=== PATIENT | male | born 1970 | race Hispanic/Latino ===

== ENCOUNTER 2016-03-04 14:25 | Emergency (ER) | payer MEDICARE ==
[2016-03-04 15:23] VITALS: BP 120/80
== END 2016-03-04 16:30 | disposition left against medical advice (07) ==
LOC: ED 14:25
DX: R05 Cough (principal); R11.0 Nausea; R63.0 Anorexia; Z53.21 Procedure and treatment not carried out due to patient leaving prior to being seen by health care provider

== ENCOUNTER 2016-11-22 16:01 | Emergency (ER) | payer MEDICARE ==
[2016-11-22 16:55] LABS: Basophils % (Auto) 0.9 % (0.0-1.8); Eosinophils % (Auto) 1.3 % (0.0-4.3); Hematocrit 45.5 % (35.5-45.6); Hemoglobin 15.2 gm/dl (11.8-15.2); Mean Corpuscular HGB Conc 33 % (32-34); Mean Corpuscular Hemoglobin 34 pg (28-32); Mean Corpuscular Volume 100 fl (84-94); Platelet Count 373 K/mm3 (140-440); Red Blood Count 4.55 M/mm3 (3.65-5.03); Red Cell Distribution Width 13.6 % (13.2-15.2); White Blood Count 14.7 K/mm3 (4.5-11.0)
[2016-11-22 17:24] LABS: Alanine Aminotransferase 14 units/L (7-56); Albumin 4.6 g/dL (3.9-5); Albumin/Globulin Ratio 1.5 %; Alkaline Phosphatase 78 units/L (35-129); Anion Gap 20 mmol/L; BUN/Creatinine Ratio 18; Blood Urea Nitrogen 18 mg/dL (9-20); Calcium 9.7 mg/dL (8.4-10.2); Carbon Dioxide 26 mmol/L (22-30); Chloride 99.4 mmol/L (98-107); Glucose 86 mg/dL (75-100); Lipase 26 units/L (13-60); Potassium 4.2 mmol/L (3.6-5.0); Sodium 141 mmol/L (137-145); Total Protein 7.6 g/dL (6.3-8.2)
[2016-11-22 17:24] LABS: Bilirubin,Urine NEG (Negative); Blood,Urine NEG (Negative); Ketones,Urine TR mg/dL (Negative); Leukocyte Esterase,Urine NEG (Negative); Mucus,Urine FEW /HPF; Nitrite,Urine NEG (Negative); Protein,Urine <15 mg/dL mg/dL (Negative); WBC,Urine < 1.0 /HPF (0.0-6.0)
[2016-11-22] MEDS ORDERED: MORPHINE IV ONE (20:46)
[2016-11-22] MEDS ORDERED: NACL 0.9% 1000 ML 1,000 ML IV ONE (20:47)
--- NOTE | 2016-11-22 20:57 | Emergency Department Report ---
HPI - General Chief Complaint: Weakness Time Seen by Provider: 11/22/16 20:37 - HPI HPI: This is a 46-year-old male who presents to the emergency department with a complaint of pain to the left lower quadrant of the abdomen and down his left leg has been going on since April when he had hernia surgery. He also says he feels weak generally, with intermittent chills and sweats. The patient is convinced that "I had a blood infection in there." He has gone repeatedly to his pain management physician who is his only physician, Dr. Li, and he was told to come to the emergency department if he is not getting any better. He has previously been taking Percocet for his pain but says that is not helping. No problems with bowel or bladder, numbness or paresthesias, shortness of breath, headache, vision change or any neurological deficits. ED Past Medical Hx - Past Medical History Previous Medical History?: Yes Hx Asthma: Yes Additional medical history: Alcohol abuse. intubation , Left foot deformity - Surgical History Past Surgical History?: Yes Additional Surgical History: trach, michell in leg, hernia repair. Splenectomy. hernia repair - Social History Smoking Status: Current Every Day Smoker Substance Use Type: Prescribed - Medications Home Medications: Home Medications Medication Instructions Recorded Confirmed Last Taken Type Albuterol Sulfate [Ventolin HFA] 2 puff IH Q4H PRN #1 [id number] 05/18/13 Unknown Rx Diazepam [Valium] 10 mg PO BID PRN 05/18/13 12/18/14 Unknown History HYDROcodone/APAP 5-325 [[place] 1 each PO Q6HR PRN #7 tablet 05/18/13 12/18/14 Unknown Rx 5/325 mg] Acetaminophen/Codeine [Tylenol 1 tab PO Q6H PRN #15 tab 01/04/16 Unknown Rx /Codeine # 3 tab] Bupropion HCl [Wellbutrin XL] 300 mg PO BID 01/04/16 01/04/16 Unknown History Percocet 10/325 mg 01/04/16 Unknown History Chlorhexidine Mouthwash [Peridex] 15 ml MM BID #1 bottle 01/22/16 Unknown Rx oxyCODONE /ACETAMINOPHEN [Percocet 1 tab PO Q6HR PRN #20 tablet 01/22/16 Unknown Rx 5/325] ED Review of Systems ROS: Stated complaint: LOW BLOOD COUNTS Other details as noted in HPI Comment: All other systems reviewed and negative Constitutional: chills, weakness Eyes: denies: eye pain, eye discharge, vision change ENT: denies: ear pain, throat pain Respiratory: denies: cough, shortness of breath, wheezing Cardiovascular: denies: palpitations, edema Gastrointestinal: abdominal pain. denies: nausea, vomiting Genitourinary: denies: dysuria, discharge Musculoskeletal: denies: back pain, joint swelling, arthralgia Skin: denies: rash, lesions Neurological: weakness. denies: headache, numbness Physical Exam - Physical Exam Vital Signs: Vital Signs 11/22/16 16:22 Temperature 99 F Pulse Rate 96 H Respiratory 18 Rate Blood Pressure 115/74 O2 Sat by Pulse 96 Oximetry Physical Exam: GENERAL: The patient is well-developed well-nourished. HENT: Normocephalic. Atraumatic. Patient has moist mucous membranes. EYES: Extraocular motions are intact. Pupils equal reactive to light bilaterally. NECK: Supple. Trachea is midline. CHEST/LUNGS: Clear to auscultation. There is no respiratory distress noted. HEART/CARDIOVASCULAR: Regular. There is no tachycardia. There is no gallop rub or murmur. ABDOMEN: Abdomen is soft. There is some left lower quadrant abdominal tenderness to palpation. No guarding or rebound tenderness. No peritoneal signs. Patient has normal bowel sounds. There is no abdominal distention. SKIN: There is no rash. There is no edema. There is no diaphoresis. NEURO: The patient is awake, alert, and oriented. The patient is cooperative. The patient has no focal neurologic deficits. The patient has normal speech. Cranial nerves II through XII grossly intact. MUSCULOSKELETAL: There is no tenderness or deformity. There is no limitation range of motion. There is no evidence of acute injury. ED Course Vital Signs 11/22/16 16:22 Temperature 99 F Pulse Rate 96 H Respiratory 18 Rate Blood Pressure 115/74 O2 Sat by Pulse 96 Oximetry ED Medical Decision Making - Lab Data Result diagrams: 11/22/16 16:34 11/22/16 16:34 - EKG Data -: EKG Interpreted by Ia EKG shows normal: sinus rhythm, axis, intervals (prolonged ND interval indicating first-degree AV block), QRS complexes, ST-T waves Rate: normal - EKG Data When compared to previous EKG there are: previous EKG unavailable Interpretation: other (prolonged ND interval indicating first-degree AV block) - Radiology Data Radiology results: report reviewed, image reviewed interpreted by me: Chest x-ray shows some hyperinflation of the lungs and flattening of the diaphragms consistent with some emphysema. No obvious pneumonia. No pleural effusions. PROCEDURE: CT ABDOMEN PELVIS WO CON TECHNIQUE: Computerized axial tomography of the abdomen and pelvis was performed without intravenous contrast. This study is performed without intravascular contrast material and its sensitivity for abdominal and pelvic pathology, including neoplasms, inflammation, abscess, free fluid, thrombosis, arterial dissection and infarction, is reduced compared with a contrast enhanced study. HISTORY: LLQ abd and pelvic pain COMPARISON: 07/30/2012 FINDINGS: Visualized lower thorax: No significant abnormality. Liver: Normal size and attenuation. Spleen: Normal size and attenuation. Gallbladder and biliary system: There are gallstones. There is no cholecystitis or biliary ductal dilatation.. Pancreas: Normal. Adrenals: Normal. Kidneys: There are no kidney stones. There is no hydronephrosis.. GI tract: There is no bowel obstruction, colitis or enteritis. The appendix is normal.. Lymph nodes and mesentery: Normal. Vasculature: Normal. Bladder: Normal. Reproductive organs: There is no ascites, free air, abscess or adenopathy.. 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 There is a screw transfixing the left sacroiliac joint.. Musculoskeletal structures: No significant abnormality. Other: None. IMPRESSION: There are gallstones. There is no cholecystitis or biliary ductal dilatation.. There are no kidney stones. There is no hydronephrosis.. There is no bowel obstruction, colitis or enteritis. The appendix is normal.. There is no ascites, free air, abscess or adenopathy.. - Medical Decision Making 46-year-old male presents to the emergency department with the main complaint of pain to the left lower quadrant the abdomen with some radiation down his leg. He feels like he has some intra-abdominal infection or problem with a previous hernia repair. I can feel the area of the hernia but it does not appear to be sticking out at this time, or likely to be incarcerated/ strangulated. His labs have been unremarkable. CT of the abdomen and pelvis with IV contrast showed some cholelithiasis without cholecystitis. No signs of any bowel infection, intra-abdominal abscess or infection or any problem with any hernia. He complained of a transient chest pain so an EKG was done that did not show any ST elevation MT, ischemia or dysrhythmia. There is a first- degree AV block but there is no bradycardia. His discomfort may have been secondary to the coincidental finding of the cholelithiasis. Vital signs stable to that his ED course including being afebrile. He was given a dose pain medication here and outpatient gets treated by a pain physician. He appears safe for discharge home at this time. His symptoms have been going on since April and upon reevaluation he is feeling improved. He has been encouraged to return to the ER with any worsening of symptoms or any acute distress. - Differential Diagnosis diverticulitis, bowel section, hernia, cholelithiasis Critical Care Time: No Critical care attestation.: If time is entered above; I have spent that time in minutes in the direct care of this critically ill patient, excluding procedure time. ED Disposition Clinical Impression: Abdominal pain Qualifiers: Abdominal location: left lower quadrant Qualified Code(s): R10.32 - Left lower quadrant pain Cholelithiasis Qualifiers: Cholelithiasis location: gallbladder Cholecystitis presence: without cholecystitis Biliary obstruction: without biliary obstruction Qualified Code(s) : K80.20 - Calculus of gallbladder without cholecystitis without obstruction Disposition: DC-01 TO HOME OR SELFCARE Is pt being admited?: No Condition: Stable Instructions: Biliary Colic (ED), Abdominal Pain (ED) Additional Instructions: Please follow-up with your primary care physician in the next few days. Return to the emergency Department with any worsening of your symptoms or any acute distress. Referrals: JANNIE LI MD [Primary Care Provider] - [facility] Time of Disposition: 01:58
[2016-11-22] MEDS ORDERED: NACL ONE (21:04)
--- NOTE | 2016-11-23 01:50 | Cat Scan Report ---
FINAL REPORT PROCEDURE: CT ABDOMEN PELVIS WO CON TECHNIQUE: Computerized axial tomography of the abdomen and pelvis was performed without intravenous contrast. This study is performed without intravascular contrast material and its sensitivity for abdominal and pelvic pathology, including neoplasms, inflammation, abscess, free fluid, thrombosis, arterial dissection and infarction, is reduced compared with a contrast enhanced study. HISTORY: LLQ abd and pelvic pain COMPARISON: 07/30/2012 FINDINGS: Visualized lower thorax: No significant abnormality. Liver: Normal size and attenuation. Spleen: Normal size and attenuation. Gallbladder and biliary system: There are gallstones. There is no cholecystitis or biliary ductal dilatation.. Pancreas: Normal. Adrenals: Normal. Kidneys: There are no kidney stones. There is no hydronephrosis.. GI tract: There is no bowel obstruction, colitis or enteritis. The appendix is normal.. Lymph nodes and mesentery: Normal. Vasculature: Normal. Bladder: Normal. Reproductive organs: There is no ascites, free air, abscess or adenopathy.. 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 There is a screw transfixing the left sacroiliac joint.. Musculoskeletal structures: No significant abnormality. Other: None. IMPRESSION: There are gallstones. There is no cholecystitis or biliary ductal dilatation.. There are no kidney stones. There is no hydronephrosis.. There is no bowel obstruction, colitis or enteritis. The appendix is normal.. There is no ascites, free air, abscess or adenopathy.. .
[2016-11-23 06:02] VITALS: BP 104/60
--- NOTE | 2016-11-23 09:36 | XRay Report ---
Single view chest: Compared to 03/11/15. History: Chest pain. Findings: Normal cardiomediastinal silhouette. Trachea is midline. No consolidation, pneumothorax or pleural effusion. Impression: No acute cardiopulmonary findings.
== END 2016-11-23 02:10 | disposition home or self-care (01) ==
LOC: ED 16:01
DX: K80.20 Calculus of gallbladder without cholecystitis without obstruction (principal); J45.909 Unspecified asthma, uncomplicated; F17.200 Nicotine dependence, unspecified, uncomplicated
CPT/HCPCS: 36415; 71010; 74176; 80053; 81001; 83690; 84443; 84484; 85025; 93005; 93010; 96361; 96374; 99284; J2270; J7030

== ENCOUNTER 2017-02-02 11:08 | Emergency (ER) | payer MEDICARE ==
[2017-02-02 12:04] LABS: Urine Drugs of Abuse Note Disclamer
[2017-02-02 12:04] LABS: Basophils % (Auto) 0.3 % (0.0-1.8); Eosinophils % (Auto) 1.2 % (0.0-4.3); Hematocrit 45.4 % (35.5-45.6); Hemoglobin 15.2 gm/dl (11.8-15.2); Mean Corpuscular HGB Conc 34 % (32-34); Mean Corpuscular Hemoglobin 33 pg (28-32); Mean Corpuscular Volume 99 fl (84-94); Platelet Count 300 K/mm3 (140-440); Red Blood Count 4.57 M/mm3 (3.65-5.03); Red Cell Distribution Width 14.4 % (13.2-15.2)
[2017-02-02 12:17] LABS: Anion Gap 17 mmol/L; BUN/Creatinine Ratio 14; Blood Urea Nitrogen 10 mg/dL (9-20); Calcium 9.4 mg/dL (8.4-10.2); Carbon Dioxide 26 mmol/L (22-30); Chloride 101.9 mmol/L (98-107); Glucose 95 mg/dL (75-100); Potassium 4.8 mmol/L (3.6-5.0); Sodium 140 mmol/L (137-145)
[2017-02-02 12:19] LABS: Creatine Kinase MB 2.9 ng/mL (0.0-4.0)
[2017-02-02 12:20] LABS: Creatine Kinase 111 units/L (55-170)
[2017-02-02 12:28] LABS: Bilirubin,Urine NEG (Negative); Blood,Urine MOD (Negative); Ketones,Urine NEG (Negative); Leukocyte Esterase,Urine NEG (Negative); Nitrite,Urine NEG (Negative); Protein,Urine <15 mg/dL mg/dL (Negative); Urobilinogen,Urine < 2.0 mg/dL (<2.0); WBC,Urine < 1.0 /HPF (0.0-6.0)
[2017-02-02] MEDS ORDERED: TYLENOL PO ONE (13:19)
--- NOTE | 2017-02-02 13:19 | Emergency Department Report ---
ED General Adult HPI - General Chief complaint: Anxiety Stated complaint: ANXIETY Time Seen by Provider: 02/02/17 13:08 Source: patient, RN notes reviewed, old records reviewed Mode of arrival: Ambulatory Limitations: No Limitations - History of Present Illness Initial comments: This is a 46-year-old male who was previously unknown to this provider. Patient reports a past medical history of anxiety, depression. Patient presents to the ER with anxiety, requests medication to help with anxiety, left- sided chest wall pain, left lower quadrant pain, and left lower extremity pain. His symptoms do not have exacerbating or relieving factors that did not radiate anywhere; anxiety has been present since 2011, chest pain has been present for a few hours, it does not radiate to the back, arms and neck, there is no vomiting, diaphoresis, shortness of breath, no DVT or pulmonary embolus risk factors. Patient has been having left lower quadrant pain for months and years. Had a negative noncontrast CT scan of the abdomen pelvis at this hospital in November. Left lower extremity pain and neuropathic discomfort have also been present for months and years. -: Gradual Location: back, left, lower extremity Consistency: intermittent Improves with: none Worsens with: none Associated Symptoms: chest pain - Related Data Home Medications Medication Instructions Recorded Confirmed Last Taken Diazepam [Valium] 10 mg PO BID PRN 05/18/13 12/18/14 Unknown Bupropion HCl [Wellbutrin XL] 300 mg PO BID 01/04/16 01/04/16 Unknown Percocet 10/325 mg 01/04/16 Unknown Previous Rx's Medication Instructions Recorded Last Taken Type Albuterol Sulfate [Ventolin HFA] 2 puff IH Q4H PRN #1 hfa.aer.ad 05/18/13 Unknown Rx HYDROcodone/APAP 5-325 [[place] 1 each PO Q6HR PRN #7 tablet 05/18/13 Unknown Rx 5/325 mg] Acetaminophen/Codeine [Tylenol 1 tab PO Q6H PRN #15 tab 01/04/16 Unknown Rx /Codeine # 3 tab] Chlorhexidine Mouthwash [Peridex] 15 ml MM BID #1 bottle 01/22/16 Unknown Rx oxyCODONE /ACETAMINOPHEN [Percocet 1 tab PO Q6HR PRN #20 tablet 01/22/16 Unknown Rx 5/325] Acetaminophen [Tylenol Arthritis] 650 mg PO Q6HR PRN #30 tablet.er 02/02/17 Unknown Rx Allergies Allergy/AdvReac Type Severity Reaction Status Date / Time cyclobenzaprine HCl Allergy Shortness Verified 03/04/16 15:24 [From Flexeril] of Breath diphenhydramine HCl Allergy Shortness Verified 03/04/16 15:24 [From Benadryl] of Breath ibuprofen [From Motrin] Allergy Shortness Verified 03/04/16 15:24 of Breath tramadol Allergy Hives Verified 03/04/16 15:24 alprazolam [From Xanax] AdvReac Itching Verified 03/04/16 15:24 iodine AdvReac Shortness Verified 11/22/16 21:00 of Breath ED Review of Systems ROS: Stated complaint: ANXIETY Other details as noted in HPI Constitutional: denies: fever Eyes: denies: vision change ENT: denies: epistaxis Respiratory: denies: cough Cardiovascular: chest pain Gastrointestinal: denies: vomiting Genitourinary: denies: testicular pain Musculoskeletal: arthralgia Skin: denies: lesions Neurological: denies: confusion Psychiatric: anxiety. denies: homicidal thoughts, suicidal thoughts ED Past Medical Hx - Past Medical History Hx Psychiatric Treatment: Yes (Anxiety, Depression) Hx Asthma: Yes Additional medical history: Alcohol abuse. intubation , Left foot deformity - Surgical History Additional Surgical History: trach, michell in leg, hernia repair. Splenectomy. hernia repair - Social History Smoking Status: Current Every Day Smoker Substance Use Type: None - Medications Home Medications: Home Medications Medication Instructions Recorded Confirmed Last Taken Type Albuterol Sulfate [Ventolin HFA] 2 puff IH Q4H PRN #1 hfa.aer.ad 05/18/13 Unknown Rx Diazepam [Valium] 10 mg PO BID PRN 05/18/13 12/18/14 Unknown History HYDROcodone/APAP 5-325 [[facility] 1 each PO Q6HR PRN #7 tablet 05/18/13 12/18/14 Unknown Rx 5/325 mg] Acetaminophen/Codeine [Tylenol 1 tab PO Q6H PRN #15 tab 01/04/16 Unknown Rx /Codeine # 3 tab] Bupropion HCl [Wellbutrin XL] 300 mg PO BID 01/04/16 01/04/16 Unknown History Percocet 10/325 mg 01/04/16 Unknown History Chlorhexidine Mouthwash [Peridex] 15 ml MM BID #1 bottle 01/22/16 Unknown Rx oxyCODONE /ACETAMINOPHEN [Percocet 1 tab PO Q6HR PRN #20 tablet 01/22/16 Unknown Rx 5/325] Acetaminophen [Tylenol Arthritis] 650 mg PO Q6HR PRN #30 tablet.er 02/02/17 Unknown Rx ED Physical Exam - General Limitations: No Limitations General appearance: alert, anxious - Head Head exam: Present: atraumatic, normocephalic - Eye Eye exam: Present: normal appearance - ENT ENT exam: Present: normal exam, normal orophraynx, mucous membranes moist, normal external ear exam - Neck Neck exam: Present: normal inspection, full ROM - Respiratory Respiratory exam: Present: normal lung sounds bilaterally. Absent: respiratory distress - Cardiovascular Cardiovascular Exam: Present: regular rate, normal rhythm, normal heart sounds. Absent: systolic murmur, diastolic murmur, rubs, gallop - GI/Abdominal GI/Abdominal exam: Present: soft, normal bowel sounds. Absent: distended, tenderness, guarding, rebound, rigid, pulsatile mass - Rectal Rectal exam: Present: deferred - Extremities Exam Extremities exam: Present: normal inspection, normal capillary refill (there is no palpable cord. There is a negative Homans sign. The compartments are soft.) , other (2+ pulses noted in the bilateral upper/lower extremities.). Absent: calf tenderness - Back Exam Back exam: Present: normal inspection, full ROM. Absent: paraspinal tenderness , vertebral tenderness - Neurological Exam Neurological exam: Present: alert, oriented X3, CN II-XII intact, other. Absent : normal gait (the patient walks with a slight limp), motor sensory deficit - Psychiatric Psychiatric exam: Present: anxious. Absent: homicidal ideation, suicidal ideation - Skin Skin exam: Present: warm, dry, intact, normal color. Absent: rash ED Course Vital Signs 02/02/17 11:24 Temperature 98.1 F Pulse Rate 74 Respiratory 20 Rate Blood Pressure 117/79 O2 Sat by Pulse 99 Oximetry ED Medical Decision Making - Lab Data Result diagrams: 02/02/17 11:46 02/02/17 11:46 Vital Signs 02/02/17 11:24 Temperature 98.1 F Pulse Rate 74 Respiratory 20 Rate Blood Pressure 117/79 O2 Sat by Pulse 99 Oximetry Lab Results 02/02/17 02/02/17 02/02/17 Range/Units 11:38 11:38 11:46 WBC (4.5-11.0) K/mm3 RBC (3.65-5.03) M/mm3 Hgb (11.8-15.2) gm/dl Hct (35.5-45.6) % MCV (84-94) fl MCH (28-32) pg MCHC (32-34) % RDW (13.2-15.2) % Plt Count (140-440) K/mm3 Lymph % (Auto) (13.4-35.0) % [place] % (Auto) (0.0-7.3) % Eos % (Auto) (0.0-4.3) % Baso % (Auto) (0.0-1.8) % Lymph # (1.2-5.4) K/mm3 [place] # (0.0-0.8) K/mm3 Eos # (0.0-0.4) K/mm3 Baso # (0.0-0.1) K/mm3 Seg Neutrophils % (40.0-70.0) % Seg Neutrophils # (1.8-7.7) K/mm3 Sodium 140 (137-145) mmol/L Potassium 4.8 (3.6-5.0) mmol/L Chloride 101.9 (98-107) mmol/L Carbon Dioxide 26 (22-30) mmol/L Anion Gap 17 mmol/L BUN 10 (9-20) mg/dL Creatinine 0.7 L (0.8-1.5) mg/dL Estimated GFR > 60 ml/min BUN/Creatinine Ratio 14 % Glucose 95 (75-100) mg/dL Calcium 9.4 (8.4-10.2) mg/dL Total Creatine Kinase (55-170) units/L CK-MB (CK-2) (0.0-4.0) ng/mL CK-MB (CK-2) Rel Index (0-4) Troponin T (0.00-0.029) ng/mL Urine Color Yellow (Yellow) Urine Turbidity Clear (Clear) Urine pH 6.0 (5.0-7.0) Ur Specific [place] 1.009 (1.003-1.030) Urine Protein <15 mg/dl (Negative) mg/dL Urine Glucose (UA) Neg (Negative) mg/dL Urine Ketones Neg (Negative) mg/dL Urine Blood Mod (Negative) Urine Nitrite Neg (Negative) Urine Bilirubin Neg (Negative) Urine Urobilinogen < 2.0 (<2.0) mg/dL Ur Leukocyte Esterase Neg (Negative) Urine WBC (Auto) < 1.0 (0.0-6.0) /HPF Urine RBC (Auto) 6.0 (0.0-6.0) /HPF Urine Opiates Screen Presumptive negative Urine Methadone Screen Presumptive negative Ur Barbiturates Screen Presumptive negative Ur Phencyclidine Scrn Presumptive negative Ur Amphetamines Screen Presumptive negative U Benzodiazepines Scrn Presumptive negative Urine Cocaine Screen Presumptive negative U Marijuana (THC) Screen Presumptive negative Drugs of Abuse Note Disclamer Plasma/Serum Alcohol (0-0.07) gm% 02/02/17 02/02/17 02/02/17 Range/Units 11:46 11:46 11:46 WBC 13.0 H (4.5-11.0) K/mm3 RBC 4.57 (3.65-5.03) M/mm3 Hgb 15.2 (11.8-15.2) gm/dl Hct 45.4 (35.5-45.6) % MCV 99 H (84-94) fl MCH 33 H (28-32) pg MCHC 34 (32-34) % RDW 14.4 (13.2-15.2) % Plt Count 300 (140-440) K/mm3 Lymph % (Auto) 22.3 (13.4-35.0) % [place] % (Auto) 7.9 H (0.0-7.3) % Eos % (Auto) 1.2 (0.0-4.3) % Baso % (Auto) 0.3 (0.0-1.8) % Lymph # 2.9 (1.2-5.4) K/mm3 [place] # 1.0 H (0.0-0.8) K/mm3 Eos # 0.2 (0.0-0.4) K/mm3 Baso # 0.0 (0.0-0.1) K/mm3 Seg Neutrophils % 68.3 (40.0-70.0) % Seg Neutrophils # 8.9 H (1.8-7.7) K/mm3 Sodium (137-145) mmol/L Potassium (3.6-5.0) mmol/L Chloride (98-107) mmol/L Carbon Dioxide (22-30) mmol/L Anion Gap mmol/L BUN (9-20) mg/dL Creatinine (0.8-1.5) mg/dL Estimated GFR ml/min BUN/Creatinine Ratio % Glucose (75-100) mg/dL Calcium (8.4-10.2) mg/dL Total Creatine Kinase 111 (55-170) units/L CK-MB (CK-2) 2.9 (0.0-4.0) ng/mL CK-MB (CK-2) Rel Index 2.6 (0-4) Troponin T < 0.010 (0.00-0.029) ng/mL Urine Color (Yellow) Urine Turbidity (Clear) Urine pH (5.0-7.0) Ur Specific [place] (1.003-1.030) Urine Protein (Negative) mg/dL Urine Glucose (UA) (Negative) mg/dL Urine Ketones (Negative) mg/dL Urine Blood (Negative) Urine Nitrite (Negative) Urine Bilirubin (Negative) Urine Urobilinogen (<2.0) mg/dL Ur Leukocyte Esterase (Negative) Urine WBC (Auto) (0.0-6.0) /HPF Urine RBC (Auto) (0.0-6.0) /HPF Urine Opiates Screen Urine Methadone Screen Ur Barbiturates Screen Ur Phencyclidine Scrn Ur Amphetamines Screen U Benzodiazepines Scrn Urine Cocaine Screen U Marijuana (THC) Screen Drugs of Abuse Note Plasma/Serum Alcohol < 0.01 (0-0.07) gm% 12/16/17 Range/Units 13:21 WBC (4.5-11.0) K/mm3 RBC (3.65-5.03) M/mm3 Hgb (11.8-15.2) gm/dl Hct (35.5-45.6) % MCV (84-94) fl MCH (28-32) pg MCHC (32-34) % RDW (13.2-15.2) % Plt Count (140-440) K/mm3 Lymph % (Auto) (13.4-35.0) % [place] % (Auto) (0.0-7.3) % Eos % (Auto) (0.0-4.3) % Baso % (Auto) (0.0-1.8) % Lymph # (1.2-5.4) K/mm3 [place] # (0.0-0.8) K/mm3 Eos # (0.0-0.4) K/mm3 Baso # (0.0-0.1) K/mm3 Seg Neutrophils % (40.0-70.0) % Seg Neutrophils # (1.8-7.7) K/mm3 Sodium (137-145) mmol/L Potassium (3.6-5.0) mmol/L Chloride (98-107) mmol/L Carbon Dioxide (22-30) mmol/L Anion Gap mmol/L BUN (9-20) mg/dL Creatinine (0.8-1.5) mg/dL Estimated GFR ml/min BUN/Creatinine Ratio % Glucose (75-100) mg/dL Calcium (8.4-10.2) mg/dL Total Creatine Kinase (55-170) units/L CK-MB (CK-2) (0.0-4.0) ng/mL CK-MB (CK-2) Rel Index (0-4) Troponin T < 0.010 (0.00-0.029) ng/mL Urine Color (Yellow) Urine Turbidity (Clear) Urine pH (5.0-7.0) Ur Specific [place] (1.003-1.030) Urine Protein (Negative) mg/dL Urine Glucose (UA) (Negative) mg/dL Urine Ketones (Negative) mg/dL Urine Blood (Negative) Urine Nitrite (Negative) Urine Bilirubin (Negative) Urine Urobilinogen (<2.0) mg/dL Ur Leukocyte Esterase (Negative) Urine WBC (Auto) (0.0-6.0) /HPF Urine RBC (Auto) (0.0-6.0) /HPF Urine Opiates Screen Urine Methadone Screen Ur Barbiturates Screen Ur Phencyclidine Scrn Ur Amphetamines Screen U Benzodiazepines Scrn Urine Cocaine Screen U Marijuana (THC) Screen Drugs of Abuse Note Plasma/Serum Alcohol (0-0.07) gm% - EKG Data -: EKG Interpreted by Me - EKG Data 02/02/17 14:32 EKG #1 demonstrates normal sinus, 70 bpm, normal axis, normal intervals, motion artifact, not morphologically consistent with ST elevation myocardial infarction , appears grossly unchanged from prior EKG from November 2016, with the exception of resolved prolonged VA interval. Repeat EKG is essentially unchanged. - Radiology Data Radiology results: report reviewed, image reviewed interpreted by me: Two-view x-ray of the chest, interpreted by me: No acute disease Referring Physician: PATRIA SANCHEZ Patient Name: MIGUEL GARCIA Date of : 1961-09-13 Sex: Female Report Date: 2017-02-02 Report Status: Finalized Findings [facility] [address] [place] [address] XRay Report Signed Patient: MIGUEL GARCIA MR#: [id number] : 09/13/1961 Acct:[id number] Age/Sex: 55 / F ADM Date: 02/02/17 Loc: ED Attending Dr: Ordering Physician: PATRIA SANCHEZ MD Date of Service: 02/02/17 Procedure(s): XR chest 1V ap Accession Number(s): [id number] cc: PATRIA SANCHEZ MD Fluoro Time In Minutes: AP CHEST :02/02/17 09:23:00 CLINICAL: Dyspnea. COMPARISON:08/28/16 FINDINGS: Cardiomegaly and central vascular congestion with redistribution of pulmonary blood flow to the upper lobes. Right basal airspace disease or atelectasis. Left basal opacification with silhouetting of the left hemidiaphragm. Mild blunting of the right costophrenic angle is unchanged compared to the prior exam. The tubes or lines. IMPRESSION: CHF with mild perihilar interstitial pulmonary edema. Bibasal dependent pulmonary edema versus atelectasis or airspace disease. Transcribed By: REF Dictated By: MADHURI STEVENS MD Electronically Authenticated By: MADHURI STEVENS MD Signed Date/Time: 02/02/17 1219 - Medical Decision Making Differential diagnosis, including without limited to: Anxiety, conversion disorder, acute coronary syndrome, costochondritis, pneumonia Assessment and plan: 46-year-old male, has numerous complaints, including left- sided chest wall discomfort, anxiety, chronic pain in his left lower quadrant, and chronic lower extremity neuropathic pain. Symptoms have been going on intermittently. Patient alert and oriented 3 at this time, clinically sober, does not require 1013, walks with a steady gait, low risk by heart score, low risk by JOHN score, no pulmonary embolus or DVT risk factors, low risk by well' s criteria, perc negative I instructed the patient that I would not prescribe any sort of benzodiazepine that he would need to follow up with a primary care doctor or psychiatrist for this. Objectively speaking, troponin negative 2, x-ray of the chest negative, EKG unremarkable 2 and unchanged from prior, patient observed in the ER for a few hours without clinical decompensation, he is suitable for outpatient management and evaluation, and is at low risk for major adverse cardiac event Patient has been having this left lower quadrant discomfort for weeks and months , and had a negative noncontrast CT scan of the abdomen and pelvis a few weeks ago. Critical care attestation.: If time is entered above; I have spent that time in minutes in the direct care of this critically ill patient, excluding procedure time. ED Disposition Clinical Impression: Chest discomfort Disposition: DC-01 TO HOME OR SELFCARE Is pt being admited?: No Does the pt Need Aspirin: No Condition: Stable Instructions: Anxiety (ED) Additional Instructions: Take the pain medication as directed. Follow up with a primary care doctor or psychiatrist within the next 2 weeks. Follow up with any of illicit cardiology groups within the next 3-5 days. Return to the ER right away with new pain, worsened pain, migration of pain, fevers, chills, lethargy, irritability, projectile vomiting, change in mental status, confusion, inability to tolerate liquid feeds. Referrals: CASPER RODARTE MD [Primary Care Provider] - 3-5 Days [facility] [Provider Group] - 3-5 Days [facility] [Provider Group] - 3-5 Days
[2017-02-02 14:41] VITALS: BP 122/78
--- NOTE | 2017-02-03 09:26 | XRay Report ---
CHEST TWO VIEWS: 02/02/17 11:08:00 CLINICAL: Chest pain. COMPARISON: 11/22/16 FINDINGS: Normal heart and pulmonary vasculature. The lungs are hyperexpanded and hyperlucent as on the last exam.Several old left rib fractures. No acute fracture. IMPRESSION: COPD and no change.
== END 2017-02-02 14:42 | disposition home or self-care (01) ==
LOC: ED 11:08
DX: R07.89 Other chest pain (principal); J45.909 Unspecified asthma, uncomplicated; F17.200 Nicotine dependence, unspecified, uncomplicated
CPT/HCPCS: 36415; 71020; 80048; 80307; 81001; 82550; 82553; 84484; 85025; 93005; 93010; 99284; G0480; 80320

== ENCOUNTER 2017-10-28 12:41 | Emergency (ER) | payer MEDICARE ==
[2017-10-28] MEDS ORDERED: HALDOL IM PRN (12:50)
[2017-10-28] MEDS ORDERED: ATIVAN IM PRN (12:50)
--- NOTE | 2017-10-28 12:51 | Emergency Department Report ---
ED General Adult HPI - General Chief complaint: Overdose Stated complaint: POSS OVERDOSE Time Seen by Provider: 10/28/17 12:49 Source: patient, EMS (verbal report received from EMS.ems notes not available at time of chart dictation), RN notes reviewed, old records reviewed Mode of arrival: Stretcher Limitations: Altered Mental Status - History of Present Illness Initial comments: This is a 47-year-old gentleman whom I have evaluated in the past. His past history includes anxiety, depression, benzodiazepine dependence. Patient is brought to the hospital by EMS for altered mental status and possible overdose. The patient's last known well time is not known. As per EMS report, patient was found on a local public transportation train and appeared to be intoxicated. Fingerstick appropriate and within normal limits. Upon arrival to the ER, the patient was sleepy but arousable. He would not tell this provider what if anything he took. History is limited as patient is sleepy and a poor historian, and appears to be intoxicated. No witnesses are available for collateral information at this time. -: unknown Radiation: other Quality: other Consistency: other Improves with: other Worsens with: other Associated Symptoms: confusion, other - Related Data Home Medications Medication Instructions Recorded Confirmed Last Taken Diazepam [Valium] 10 mg PO BID PRN 05/18/13 12/18/14 Unknown Bupropion HCl [Wellbutrin XL] 300 mg PO BID 01/04/16 01/04/16 Unknown Percocet 10/325 mg 01/04/16 Unknown Previous Rx's Medication Instructions Recorded Last Taken Type Albuterol Sulfate [Ventolin HFA] 2 puff IH Q4H PRN #1 hfa.aer.ad 05/18/13 Unknown Rx HYDROcodone/APAP 5-325 [[facility] 1 each PO Q6HR PRN #7 tablet 05/18/13 Unknown Rx 5/325 mg] Acetaminophen/Codeine [Tylenol 1 tab PO Q6H PRN #15 tab 01/04/16 Unknown Rx /Codeine # 3 tab] Chlorhexidine Mouthwash [Peridex] 15 ml MM BID #1 bottle 01/22/16 Unknown Rx oxyCODONE /ACETAMINOPHEN [Percocet 1 tab PO Q6HR PRN #20 tablet 01/22/16 Unknown Rx 5/325] Acetaminophen [Tylenol Arthritis] 650 mg PO Q6HR PRN #30 tablet.er 02/02/17 Unknown Rx Allergies Allergy/AdvReac Type Severity Reaction Status Date / Time cyclobenzaprine HCl Allergy Shortness Verified 03/04/16 15:24 [From Flexeril] of Breath diphenhydramine HCl Allergy Shortness Verified 03/04/16 15:24 [From Benadryl] of Breath ibuprofen [From Motrin] Allergy Shortness Verified 03/04/16 15:24 of Breath tramadol Allergy Hives Verified 03/04/16 15:24 alprazolam [From Xanax] AdvReac Itching Verified 03/04/16 15:24 iodine AdvReac Shortness Verified 11/22/16 21:00 of Breath ED Review of Systems ROS: Stated complaint: POSS OVERDOSE Other details as noted in HPI Comment: Unobtainable due to pts medical conditions ED Past Medical Hx - Past Medical History Hx Psychiatric Treatment: Yes (Anxiety, Depression) Hx Asthma: Yes Additional medical history: Alcohol abuse. intubation , Left foot deformity - Surgical History Additional Surgical History: trach, michell in leg, hernia repair. Splenectomy. hernia repair - Social History Smoking Status: Current Every Day Smoker Substance Use Type: None - Medications Home Medications: Home Medications Medication Instructions Recorded Confirmed Last Taken Type Albuterol Sulfate [Ventolin HFA] 2 puff IH Q4H PRN #1 hfa.aer.ad 05/18/13 Unknown Rx Diazepam [Valium] 10 mg PO BID PRN 05/18/13 12/18/14 Unknown History HYDROcodone/APAP 5-325 [[facility] 1 each PO Q6HR PRN #7 tablet 05/18/13 12/18/14 Unknown Rx 5/325 mg] Acetaminophen/Codeine [Tylenol 1 tab PO Q6H PRN #15 tab 01/04/16 Unknown Rx /Codeine # 3 tab] Bupropion HCl [Wellbutrin XL] 300 mg PO BID 01/04/16 01/04/16 Unknown History Percocet 10/325 mg 01/04/16 Unknown History Chlorhexidine Mouthwash [Peridex] 15 ml MM BID #1 bottle 01/22/16 Unknown Rx oxyCODONE /ACETAMINOPHEN [Percocet 1 tab PO Q6HR PRN #20 tablet 01/22/16 Unknown Rx 5/325] Acetaminophen [Tylenol Arthritis] 650 mg PO Q6HR PRN #30 tablet.er 02/02/17 Unknown Rx ED Physical Exam - General Limitations: Altered Mental Status, Physical Limitation General appearance: lethargic - Head Head exam: Present: atraumatic, normocephalic - Eye Eye exam: Present: normal appearance, PERRL - ENT ENT exam: Present: normal exam, normal orophraynx, normal external ear exam - Neck Neck exam: Present: normal inspection, full ROM. Absent: tenderness, meningismus - Respiratory Respiratory exam: Absent: respiratory distress, wheezes, rales, rhonchi, stridor - Cardiovascular Cardiovascular Exam: Present: regular rate, normal rhythm, normal heart sounds. Absent: bradycardia, tachycardia, irregular rhythm, systolic murmur, diastolic murmur, rubs, gallop - GI/Abdominal GI/Abdominal exam: Present: soft. Absent: distended, tenderness, guarding, rebound, rigid, pulsatile mass - Rectal Rectal exam: Present: normal inspection, other (chaperoned by nurse Kishore) - exam: Present: normal inspection, other (chaperoned by nurse Kishore) External exam: Present: normal external exam - Extremities Exam Extremities exam: Present: normal inspection, other (2+ pulses noted in the bilateral upper, lower extremities. Compartments soft. No long bony tenderness. The pelvis is stable.). Absent: tenderness, pedal edema, joint swelling, calf tenderness - Back Exam Back exam: Absent: tenderness, CVA tenderness (R), paraspinal tenderness - Neurological Exam Neurological exam: Present: altered (patient is altered. He occasionally moves 4 extremities. He is yelling at staff.) - Psychiatric Psychiatric exam: Present: agitated - Skin Skin exam: Present: warm, dry, intact, normal color. Absent: rash ED Course Vital Signs 10/28/17 10/28/17 12:51 15:27 Temperature 98.1 F Pulse Rate 96 H 91 H Respiratory 18 18 Rate Blood Pressure 101/66 Blood Pressure 110/68 [Left] O2 Sat by Pulse 98 97 Oximetry - Reevaluation(s) Reevaluation #1: 10/28/17 13:14 Differential diagnosis, including but not limited to: Intracranial injury, cervical spine injury, overdose, dehydration, myositis, electrolyte derangement Assessment and plan: 47-year-old male with a probable toxic encephalopathy, most likely secondary to overdose. Intent is unknown. Last known well time is not known. Overall clinical picture not consistent with ischemic stroke but rather toxic encephalopathy. Given that patient's intent is unknown, and given that he does not appear to exhibit a rational decision making capacity or ability to care for himself he is placed on a 1013. CT scan of the brain, cervical spine pending. Screening laboratory studies pending. EKG reviewed, appears essentially unremarkable and essentially unchanged from prior. He will be placed on a color television console monitor and pulse oximeter and observed. Reevaluation #2: 10/28/17 18:34 CT scan of the brain, cervical spine negative for acute disease. Patient has been observed in the ER for hours without clinical decompensation. He is sleeping comfortably. He is medically stable for psychiatric consultation and evaluation at this time. There does not appear to be any emergent medical condition that would preclude psychiatric admission, hospitalization and/or consultation at this time. ED Medical Decision Making - Lab Data Result diagrams: 10/28/17 13:26 10/28/17 13:26 - EKG Data -: EKG Interpreted by Me EKG shows normal: sinus rhythm - EKG Data 10/28/17 13:15 Sinus, 92 bpm, normal axis, QTC prolonged, borderline AR interval, abnormal EKG , a STEMI, appears essentially unchanged from prior from August 2017. - Radiology Data Radiology results: pending Critical care attestation.: If time is entered above; I have spent that time in minutes in the direct care of this critically ill patient, excluding procedure time. ED Disposition Clinical Impression: Alcohol intoxication, Medical clearance for psychiatric admission Disposition: DC/TX-65 PSY HOSP/PSY UNIT Is pt being admited?: No Does the pt Need Aspirin: No Condition: Good Referrals: PRIMARY CARE, [Primary Care Provider] - 3-5 Days
[2017-10-28 13:54] LABS: Hematocrit 42.9 % (35.5-45.6); Hemoglobin 15.1 gm/dl (11.8-15.2); Mean Corpuscular HGB Conc 35 % (32-34); Mean Corpuscular Hemoglobin 34 pg (28-32); Mean Corpuscular Volume 96 fl (84-94); Platelet Count 271 K/mm3 (140-440); Red Blood Count 4.47 M/mm3 (3.65-5.03); Red Cell Distribution Width 14.5 % (13.2-15.2)
[2017-10-28 14:04] LABS: INR 1.05 (0.87-1.13)
[2017-10-28 14:25] LABS: BUN/Creatinine Ratio 18; Blood Urea Nitrogen 9 mg/dL (9-20); Calcium 8.3 mg/dL (8.4-10.2); Hemolysis Index 16
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
--- NOTE | 2017-10-28 18:31 | Cat Scan Report ---
FINAL REPORT EXAM: CT CERVICAL SPINE WO CON HISTORY: ams found down in tox TECHNIQUE: Standard CT cervical spine obtained at 2.5 mm axial increments. Coronal and sagittal reconstruction was also performed. PRIORS: CT C-spine 01/22/2016 FINDINGS: C7 is only included on the axial imaging. It is off the field of view for sagittal and coronal images. The vertebral bodies are intact. There is no evidence for acute fracture. There is no evidence for paravertebral soft tissue swelling. Alignment is maintained. Moderate degenerative disc space narrowing at C5-C6 is stable. Mucosal thickening in the left sphenoid, maxillary, and ethmoid sinuses is seen. IMPRESSION: No acute abnormality of the cervical spine. Stable exam with degenerative disc changes at C5-C6.
[2017-10-28 20:36] LABS: Bilirubin,Urine NEG (Negative); Blood,Urine NEG (Negative); Color,Urine Yellow (Yellow); Hyaline Casts,Urine 1 /LPF; Mucus,Urine FEW /HPF; Protein,Urine <15 mg/dL mg/dL (Negative)
[2017-10-28 20:52] LABS: Amphetamine Screen,Urine PRESUMPTIVE NEGATIVE; Cannabinoid Screen,Urine PRESUMPTIVE NEGATIVE; Cocaine Screen,Urine PRESUMPTIVE NEGATIVE; Methadone Screen,Urine PRESUMPTIVE NEGATIVE; Opiate Screen,Urine PRESUMPTIVE NEGATIVE
[2017-10-28 21:28] LABS: Benzodiazepines Screen,Urine PRESUMPTIVE POSITIVE
--- NOTE | 2017-10-29 14:11 | Consultation ---
History of Present Illness - Reason for Consult Consult date: 10/29/17 Reason for consult: Mental Health Evaluation Requesting physician: PATRIA SANCHEZ - Chief Complaint Chief complaint: "I am okay" - History of Present Psychiatric Illness 47-year-old white male presenting to ER for AMS, being intoxication, and possible overdose. Per the record the patient has a hx of anxiety, depression, and benzodiazepine dependence. Today the patient is calm, but vague during the assessment. He wouldn't answer all the questions when asked. He stated that he takes Xanax when needed that's prescribed by his psychiatrist. He would not confirm or deny having depression when asked. He stated that this is the only time being intoxicated in his adult life. Per the record, the patient have been to the ER for ETOH in the past. He could not elaborate what happened to him prior to his arrival to the hospital. He denies overdosing on any substance. He denies SI/HI's and AVH's. He denies recreational drug use. Medications and Allergies Allergies Allergy/AdvReac Type Severity Reaction Status Date / Time cyclobenzaprine HCl Allergy Shortness Verified 03/04/16 15:24 [From Flexeril] of Breath diphenhydramine HCl Allergy Shortness Verified 03/04/16 15:24 [From Benadryl] of Breath ibuprofen [From Motrin] Allergy Shortness Verified 03/04/16 15:24 of Breath tramadol Allergy Hives Verified 03/04/16 15:24 alprazolam [From Xanax] AdvReac Itching Verified 03/04/16 15:24 iodine AdvReac Shortness Verified 11/22/16 21:00 of Breath Home Medications Medication Instructions Recorded Confirmed Last Taken Type Albuterol Sulfate [Ventolin HFA] 2 puff IH Q4H PRN #1 hfa.aer.ad 05/18/13 Unknown Rx Diazepam [Valium] 10 mg PO BID PRN 05/18/13 12/18/14 Unknown History HYDROcodone/APAP 5-325 [[place] 1 each PO Q6HR PRN #7 tablet 05/18/13 12/18/14 Unknown Rx 5/325 mg] Acetaminophen/Codeine [Tylenol 1 tab PO Q6H PRN #15 tab 01/04/16 Unknown Rx /Codeine # 3 tab] Bupropion HCl [Wellbutrin XL] 300 mg PO BID 01/04/16 01/04/16 Unknown History Percocet 10/325 mg 01/04/16 Unknown History Chlorhexidine Mouthwash [Peridex] 15 ml MM BID #1 bottle 01/22/16 Unknown Rx oxyCODONE /ACETAMINOPHEN [Percocet 1 tab PO Q6HR PRN #20 tablet 01/22/16 Unknown Rx 5/325] Acetaminophen [Tylenol Arthritis] 650 mg PO Q6HR PRN #30 tablet.er 02/02/17 Unknown Rx Active Meds: Active Medications Haloperidol Lactate (Haldol) 5 mg IM Q6HR PRN PRN Reason: Agitation Lorazepam (Ativan) 2 mg IM Q4HR PRN PRN Reason: Agitation Mental Status Exam - Vital signs Last Vital Signs Temp 98.1 F 10/29/17 10:00 Pulse 105 H 10/29/17 10:00 Resp 18 10/29/17 10:00 BP 127/74 10/29/17 10:00 Pulse Ox 94 10/29/17 10:00 - Exam Narrative exam: MSE: Appearance: calm Behavior: regular eye contact Speech: regular rate and tone Mood: "okay" Affect: flat Thought Process: circumstantial Thought Content: denies SI/HI's and AVH's Motor Activity: lying in bed Cognition: A/O x3 Insight: variable Judgment: variable Results Result Diagrams: 10/28/17 13:26 10/28/17 13:26 Abnormal lab results 10/28/17 10/28/17 10/28/17 Range/Units 13:08 13:08 13:08 Carbon Dioxide (22-30) mmol/L Creatinine (0.8-1.5) mg/dL Calcium (8.4-10.2) mg/dL Salicylates < 0.3 L (2.8-20.0) mg/dL Acetaminophen < 5.0 L (10.0-30.0) ug/mL Plasma/Serum Alcohol 0.14 H (0-0.07) % 10/28/17 Range/Units 13:26 Carbon Dioxide 21 L (22-30) mmol/L Creatinine 0.5 L (0.8-1.5) mg/dL Calcium 8.3 L (8.4-10.2) mg/dL Salicylates (2.8-20.0) mg/dL Acetaminophen (10.0-30.0) ug/mL Plasma/Serum Alcohol (0-0.07) % All other labs normal. Assessment and Plan Assessment and plan: Impression: Alcohol Use DO. Alcohol Intoxicated on admission to the ER. Unspecified Anxiety DO. Today the patient is calm, but vague during the assessment. The patient is positive for benzos. No acute withdrawals noted (etoh /benzos). DDx: R/O Mood DO Recommendation/Plan: Continue 1013 and gather collateral to R/O possible overdose. Recommend CIWA. Discussed the importance to abstain from alcohol consumption (etoh).
[2017-10-29] MEDS ORDERED: ATIVAN IV PRN ×2 (14:28→14:41)
[2017-10-29 14:50] VITALS: BP 111/77
[2017-10-29] MEDS: ATIVAN IV PRN ×2 (15:21→19:00)
== END 2017-10-29 19:25 ==
LOC: ED 12:41 → EEVIPCON 12:41 → ED 10-29 19:25
DX: F10.129 Alcohol abuse with intoxication, unspecified (principal); F41.9 Anxiety disorder, unspecified; F32.9 Major depressive disorder, single episode, unspecified; J45.909 Unspecified asthma, uncomplicated; F17.200 Nicotine dependence, unspecified, uncomplicated; Z88.8 Allergy status to other drugs, medicaments and biological substances; Z88.6 Allergy status to analgesic agent
CPT/HCPCS: 36415; 70450; 72125; 80048; 80307; 81001; 82550; 83735; 85027; 85610; 93005; 93010; 96374; 96376; 99285; G0480; J1630; J2060; 80320

== ENCOUNTER 2018-11-22 18:07 | Emergency (ER) | payer MEDICARE ==
[2018-11-22 19:33] VITALS: BP 119/74
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
--- NOTE | 2018-11-22 20:26 | XRay Report ---
LEFT KNEE, 3 VIEWS. INDICATION / CLINICAL INFORMATION: WOUND WITH REDNESS AND SWELLING. COMPARISON: None available. FINDINGS: Hardware is present in the distal femur. IM michell is noted. 2 screws are present in the patella Visual ized hardware is intact. The bones are demineralized. There is soft tissue swelling with soft tissue defect along the anterior aspect of the knee consisten t with history of wound. Multiple osteochondral loose bodies are seen surrounding the knee. I do not see radiographic evidence for osteomyelitis at this time. IMPRESSION: Prior ORIF of the femur and patella for prior fractures. There is prepatellar soft tissue swelling consistent with history provided of wound.. No radiographic evidence of osteomyelitis at th is time. Signer Name: Yomaira Murphy MD Signed: 11/22/2018 8:21 PM Workstation Name: [id number]
[2018-11-22] MEDS ORDERED: ACETAMINOPHEN 500 MG TAB PO ONE (21:28)
[2018-11-22] MEDS ORDERED: ONDANSETRON 4 MG ODT TAB PO ONE (21:28)
[2018-11-22] MEDS ORDERED: SULFAMETHOXAZOLE/TRIMETHOPRIM 800/160MG DS TAB PO ONE (21:28)
[2018-11-22] MEDS ORDERED: BACITRACIN/POLYMYXIN B OINT 28.35 GM TP ONE (21:28)
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
== END 2018-11-22 23:00 | disposition home or self-care (01) ==
LOC: ED 18:07
DX: S83.92XA Sprain of unspecified site of left knee, initial encounter (principal); S80.212A Abrasion, left knee, initial encounter; L08.9 Local infection of the skin and subcutaneous tissue, unspecified; L03.116 Cellulitis of left lower limb; F41.9 Anxiety disorder, unspecified; F32.9 Major depressive disorder, single episode, unspecified; J45.909 Unspecified asthma, uncomplicated; F17.200 Nicotine dependence, unspecified, uncomplicated; Z88.6 Allergy status to analgesic agent; Z88.8 Allergy status to other drugs, medicaments and biological substances; X58.XXXA Exposure to other specified factors, initial encounter; Y93.89 Activity, other specified; Y92.89 Other specified places as the place of occurrence of the external cause; Y99.8 Other external cause status
CPT/HCPCS: Q0162

== ENCOUNTER 2019-01-04 11:57 | Emergency (ER) | payer MEDICARE ==
[2019-01-04 12:23] VITALS: BP 102/65
[2019-01-04 14:12] LABS: Hematocrit 44.1 % (35.5-45.6); Hemoglobin 14.8 gm/dl (11.8-15.2); Mean Corpuscular HGB Conc 34 % (32-34); Mean Corpuscular Volume 100 fl (84-94); Platelet Count 312 K/mm3 (140-440); Red Blood Count 4.42 M/mm3 (3.65-5.03); Red Cell Distribution Width 14.2 % (13.2-15.2)
[2019-01-04 14:25] LABS: BUN/Creatinine Ratio 24; Blood Urea Nitrogen 19 mg/dL (9-20); Calcium 8.8 mg/dL (8.4-10.2); Hemolysis Index 17
--- NOTE | 2019-01-04 14:44 | XRay Report ---
XR spine lumbosacral 2-3V INDICATION / CLINICAL INFORMATION: back pain. COMPARISON: None available. FINDINGS: BONES/JOINT(S): No vertebral fracture. Mild degenerative disc disease at L5-S1 with moderate disc hei ght loss and endplate osteophyte formation. Grade 1 degenerative anterolisthesis of L5 on S1. No angy tional significant disc height loss. Fixation screw in the left S1 vertebral segment. SOFT TISSUES: No significant abnormality. ADDITIONAL FINDINGS: None. Signer Name: Spike Hudson MD Signed: 01/04/2019 2:40 PM Workstation Name: [email or web address]
--- NOTE | 2019-01-04 14:45 | XRay Report ---
XR knee 3V LT INDICATION / CLINICAL INFORMATION: knee pain. COMPARISON: None available. FINDINGS: BONES/JOINT(S): No acute fracture or subluxation. Previous internal fixation in the distal femur with intramedullary michell. Previous repair of a patellar fracture with 2 screws and cerclage wires. Chronic appearing patellar fragment about 2 cm superior to the superior pole of the patella. No significant joint effusion. SOFT TISSUES: No significant abnormality. ADDITIONAL FINDINGS: None. Signer Name: Spike Hudson MD Signed: 01/04/2019 2:41 PM Workstation Name: [email or web address]
[2019-01-04 14:47] LABS: Total Cells Counted 100
[2019-01-04 14:48] LABS: Burr Cells 1+; Large Platelets Few; Platelet Estimate Consistent w Auto; Poikilocytosis 1+
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
[2019-01-04] MEDS ORDERED: traMADol 50 MG TAB PO ONE (15:13)
== END 2019-01-04 15:34 | disposition home or self-care (01) ==
LOC: ED 11:57
DX: S81.032A Puncture wound without foreign body, left knee, initial encounter (principal); L03.115 Cellulitis of right lower limb; M54.5 Low back pain; J45.909 Unspecified asthma, uncomplicated; F41.9 Anxiety disorder, unspecified; F32.9 Major depressive disorder, single episode, unspecified; Z90.81 Acquired absence of spleen; Z87.891 Personal history of nicotine dependence; Z79.899 Other long term (current) drug therapy; Z91.041 Radiographic dye allergy status; Z88.5 Allergy status to narcotic agent; Y08.89XA Assault by other specified means, initial encounter; Y93.89 Activity, other specified; Y92.89 Other specified places as the place of occurrence of the external cause; Y99.8 Other external cause status
CPT/HCPCS: 36415; 72100; 80048; 85007; 85025; 99283

== ENCOUNTER 2019-02-07 16:34 | Emergency (ER) | payer MEDICARE ==
--- NOTE | 2019-02-07 17:19 | Event Note ---
ED Screening Note Date of service: 02/07/19 Time: 17:18 ED Screening Note: 48 y o male presents to Ed cc of left shoulder anterior pain and burning worsening with movement This initial assessment/diagnostic orders/clinical plan/treatment(s) is/are subject to change based on patients health status, clinical progression and re- assessment by fellow clinical providers in the ED. Further treatment and workup at subsequent clinical providers discretion. Patient/guardian urged not to elope from the ED as their condition may be serious if not clinically assessed and managed. Initial orders include: xr shoulder acc eval
--- NOTE | 2019-02-07 18:05 | XRay Report ---
LEFT SHOULDER 3 VIEWS INDICATION / CLINICAL INFORMATION: LT SHOULDER PAIN COMPARISON: None available. FINDINGS: BONES / JOINT(S): No acute fracture or subluxation. No significant arthritis. SOFT TISSUES: No significant abnormality. ADDITIONAL FINDINGS: Old left rib fractures. Signer Name: Carlos Camargo MD Signed: 02/07/2019 6:01 PM Workstation Name: [id number]
--- NOTE | 2019-02-07 21:13 | Emergency Department Report ---
Chief Complaint: Shoulder Injury Stated Complaint: SHOULDER PAIN Time Seen by Provider: 02/07/19 21:08 - HPI History of Present Illness: 48-year-old male presents to the emergency room for chronic left shoulder pain. Patient denies any recent injuries. Patient reports that she needs a refill on his Cando that was given to him on 01/28/2019. Patient states that his provider at [facility] gave him the prescription that he needs another one. I informed patient that we do not manage chronic pain and that we would need to refer him to pain management. Patient therefore request to have a prescription for tramadol. I then instructed patient that we do not treat chronic pain with narcotics that he would need to go to a pain management provider or his primary care provider. Patient reports Eden the warehouse logistics coordinator is supposed to help him get into her facility. Patient states I have to wait 30 days before and see another pain management provider. I informed patient that he can take [id number] Tylenol as he has an allergy to ibuprofen and cyclobenzaprine. - Exam Vital Signs: Vital Signs 02/07/19 16:37 Temperature 97.5 F L Pulse Rate 97 H Respiratory 18 Rate Blood Pressure 120/71 O2 Sat by Pulse 96 Oximetry MSE screening note: Focused history and physical exam performed. Due to findings the following was ordered: 48-year-old male presents to the emergency room for chronic left shoulder pain. Patient denies any recent injuries. Patient reports that she needs a refill on his Cando that was given to him on 01/28/2019. Patient states that his provider at [facility] gave him the prescription that he needs another one. I informed patient that we do not manage chronic pain and that we would need to refer him to pain management. Patient therefore request to have a prescription for tramadol. I then instructed patient that we do not treat chronic pain with narcotics that he would need to go to a pain management provider or his primary care provider. Patient reports Eden the warehouse logistics coordinator is supposed to help him get into her facility. Patient states I have to wait 30 days before and see another pain management provider. I informed patient that he can take [id number] Tylenol as he has an allergy to ibuprofen and cyclobenzaprine. Patient is referred to pain management provider. Recommend patient to take Tylenol for pain management. ED Medical Decision Making - Radiology Data interpreted by me: 01/28/2019 2 01/28/2019 HYDROCODONE-ACETAMIN 5-325 MG 20.0 5 NA SHE [id number] [facility] ([id number]) 0 20.0 [place] 01/08/2019 2 01/08/2019 TRAMADOL HCL 50 MG TABLET 30.0 8 NA SHE [id number] [facility] ([id number]) 0 18.75 [place] 01/04/2019 2 01/04/2019 TRAMADOL HCL 50 MG TABLET 10.0 2 RY SHE [id number] [facility] ([id number]) 0 25.0 [place] 11/23/2018 2 11/22/2018 TRAMADOL HCL 50 MG TABLET 12.0 3 DA OSE [id number] [facility] ([id number]) 0 20.0 [place] 09/12/2018 1 09/11/2018 ACETAMINOPHEN-COD #3 TABLET 12.0 3 GR [facility] [id number] [facility] ([id number]) 0 18.0 [place] *Pharmacy is created using a combination of pharmacy name and the last four digits of the pharmacy license number. ED Disposition for MSE Clinical Impression: Chronic left shoulder pain Disposition: DC-01 TO HOME OR SELFCARE Is pt being admited?: No Does the pt Need Aspirin: No Condition: Stable Additional Instructions: Take Tylenol for pain management. Follow up with the pain management provider I have listed several below for your convenience. Referrals: PRIMARY CARE, [Primary Care Provider] - 3-5 Days [facility] [Provider Group] - 3-5 Days [facility], [facility] [Provider Group] - 3-5 Days [facility] [Provider Group] - 3-5 Days
[2019-02-07 22:11] VITALS: BP 110/65
== END 2019-02-07 21:30 | disposition home or self-care (01) ==
LOC: ED 16:34
DX: M25.512 Pain in left shoulder (principal); Z88.8 Allergy status to other drugs, medicaments and biological substances

== ENCOUNTER 2019-02-20 12:44 | Emergency (ER) | payer MEDICARE ==
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
[2019-02-20] MEDS ORDERED: guaiFENesin/CODEINE 100-10MG ORAL LIQD 5 ML PO ONE (17:00)
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
[2019-02-20 17:37] VITALS: BP 113/67
== END 2019-02-20 17:36 | disposition home or self-care (01) ==
LOC: ED 12:44
DX: J06.9 Acute upper respiratory infection, unspecified (principal); F32.9 Major depressive disorder, single episode, unspecified; F41.9 Anxiety disorder, unspecified; J45.909 Unspecified asthma, uncomplicated; F17.200 Nicotine dependence, unspecified, uncomplicated; F12.10 Cannabis abuse, uncomplicated
CPT/HCPCS: 71046; 99283

== ENCOUNTER 2019-02-23 12:56 | Observation (INO) | payer MEDICARE ==
[2019-02-23] MEDS ORDERED: IPRATROPIUM 0.02% NEBU 2.5 ML IH ONE ×3 (13:05→18:34)
[2019-02-23] MEDS ORDERED: dexAMETHasone 20 MG/5 ML VIAL IM ONE (13:05)
[2019-02-23] MEDS ORDERED: ALBUTEROL 2.5 MG/3 ML NEBU IH ONE ×3 (13:05→18:34)
--- NOTE | 2019-02-23 13:07 | Emergency Department Report ---
Blank Doc - Documentation Documentation: 48-year-old male that presents with SOB. WAs here 3 days ago and chest x-ray within normal limits. Exam: Some tightness in breath sounds. Will order breathing treatment and steroids. This initial assessment/diagnostic orders/clinical plan/treatment(s) is/are subject to change based on patient's health status, clinical progression and re- assessment by fellow clinical providers in the ED. Further treatment and workup at subsequent clinical providers discretion. Patient/guardians urged not to elope from the ED as their condition may be serious if not clinically assessed and managed. Initial orders include: 1- Patient sent to ACC for further evaluation and treatment 2- breathing treatment/steroids
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
[2019-02-23] MEDS ORDERED: dexAMETHasone 20 MG/5 ML VIAL IV ONE (14:22)
--- NOTE | 2019-02-23 14:26 | Emergency Department Report ---
ED Shortness of Breath HPI - General Chief Complaint: Dyspnea/Respdistress Stated Complaint: SOB Time Seen by Provider: 02/23/19 13:03 Source: patient Mode of arrival: Ambulatory Limitations: No Limitations - History of Present Illness Initial Comments: Patient is 48 years old male with no significant past medical history except for traumatic pneumothorax few years ago and heavy smoking. Patient patient presented to the ER complaining of shortness of breath, difficulty breathing and wheezing. Patient was seen here 3 days ago and treated for upper respiratory symptoms but is stated that his symptoms did not improve. Patient denied any chest pain, fever or chills. Patient also denied any nausea or vomiting. Patient found to have a oxygen saturation of 87% on room air in triage. MD Complaint: shortness of breath, cough -: week(s) Improves With: nothing Context: recent URI Treatments Prior to Arrival: none - Related Data Home Medications Medication Instructions Recorded Confirmed Last Taken Diazepam [Valium] 10 mg PO BID PRN 05/18/13 12/18/14 Unknown Bupropion HCl [Wellbutrin XL] 300 mg PO BID 01/04/16 01/04/16 Unknown Percocet 10/325 mg 01/04/16 Unknown Previous Rx's Medication Instructions Recorded Last Taken Type Albuterol Sulfate [Ventolin HFA] 2 puff IH Q4H PRN #1 hfa.aer.ad 05/18/13 Unknown Rx HYDROcodone/APAP 5-325 [Brick 1 each PO Q6HR PRN #7 tablet 05/18/13 Unknown Rx 5/325 mg] Chlorhexidine Mouthwash [Peridex] 15 ml MM BID #1 bottle 01/22/16 Unknown Rx oxyCODONE /ACETAMINOPHEN [Percocet 1 tab PO Q6HR PRN #20 tablet 01/22/16 Unknown Rx 5/325] Acetaminophen [Tylenol Arthritis] 650 mg PO Q6HR PRN #30 tablet.er 02/02/17 Unknown Rx Acetaminophen/Codeine [Tylenol 1 tab PO Q6H PRN #12 tab 11/22/18 Unknown Rx /Codeine # 3 tab] Mupirocin [Bactroban 2% OINT] 1 applic TP Q8H #1 tube 11/22/18 Unknown Rx Sulfamethoxazole/Trimethoprim 1 each PO Q12H #20 tablet 11/22/18 Unknown Rx [Bactrim DS TAB] Sulfamethoxazole/Trimethoprim 1 each PO BID #14 tablet 01/04/19 Unknown Rx [Bactrim DS TAB] traMADoL [Ultram 50 MG tab] 50 mg PO Q6HR PRN #10 tablet 01/04/19 Unknown Rx Allergies Allergy/AdvReac Type Severity Reaction Status Date / Time cyclobenzaprine HCl Allergy Shortness Verified 03/04/16 15:24 [From Flexeril] of Breath ibuprofen [From Motrin] Allergy Shortness Verified 03/04/16 15:24 of Breath iodine AdvReac Shortness Verified 11/22/16 21:00 of Breath ED Review of Systems ROS: Stated complaint: SOB Other details as noted in HPI Comment: All other systems reviewed and negative Constitutional: denies: chills, fever Respiratory: cough, shortness of breath, SOB with exertion, SOB at rest, wheez ing Cardiovascular: denies: chest pain, palpitations, dyspnea on exertion Gastrointestinal: denies: abdominal pain, nausea, vomiting Neurological: denies: headache, weakness ED Past Medical Hx - Past Medical History Previous Medical History?: Yes Hx Psychiatric Treatment: Yes (Anxiety, Depression) Hx Asthma: Yes Additional medical history: Alcohol abuse. intubation , Left foot deformity, Left knee pain and surgery - Surgical History Past Surgical History?: Yes Additional Surgical History: trach, michell in leg, hernia repair. Splenectomy. hernia repair, Left knee surgery - Social History Smoking Status: Never Smoker Substance Use Type: None - Medications Home Medications: Home Medications Medication Instructions Recorded Confirmed Last Taken Type Albuterol Sulfate [Ventolin HFA] 2 puff IH Q4H PRN #1 hfa.aer.ad 05/18/13 12/18/14 Unknown Rx Diazepam [Valium] 10 mg PO BID PRN 05/18/13 12/18/14 Unknown History HYDROcodone/APAP 5-325 [Brick 1 each PO Q6HR PRN #7 tablet 05/18/13 12/18/14 Unknown Rx 5/325 mg] Bupropion HCl [Wellbutrin XL] 300 mg PO BID 01/04/16 01/04/16 Unknown History Percocet 10/325 mg 01/04/16 Unknown History Chlorhexidine Mouthwash [Peridex] 15 ml MM BID #1 bottle 01/22/16 Unknown Rx oxyCODONE /ACETAMINOPHEN [Percocet 1 tab PO Q6HR PRN #20 tablet 01/22/16 Unknown Rx 5/325] Acetaminophen [Tylenol Arthritis] 650 mg PO Q6HR PRN #30 tablet.er 02/02/17 Unknown Rx Acetaminophen/Codeine [Tylenol 1 tab PO Q6H PRN #12 tab 11/22/18 Unknown Rx /Codeine # 3 tab] Mupirocin [Bactroban 2% OINT] 1 applic TP Q8H #1 tube 11/22/18 Unknown Rx Sulfamethoxazole/Trimethoprim 1 each PO Q12H #20 tablet 11/22/18 Unknown Rx [Bactrim DS TAB] Sulfamethoxazole/Trimethoprim 1 each PO BID #14 tablet 01/04/19 Unknown Rx [Bactrim DS TAB] traMADoL [Ultram 50 MG tab] 50 mg PO Q6HR PRN #10 tablet 01/04/19 Unknown Rx ED Physical Exam - General Limitations: No Limitations General appearance: in distress (moderate respiratory distress) - Head Head exam: Present: atraumatic, normocephalic, normal inspection - Eye Eye exam: Present: normal appearance - ENT ENT exam: Present: normal exam, normal orophraynx, mucous membranes moist - Neck Neck exam: Present: normal inspection, full ROM. Absent: tenderness, meningismus, lymphadenopathy, thyromegaly - Respiratory Respiratory exam: Present: respiratory distress, wheezes, rales, rhonchi, access ory muscle use, decreased breath sounds, prolonged expiratory. Absent: stridor - Cardiovascular Cardiovascular Exam: Present: tachycardia - GI/Abdominal GI/Abdominal exam: Present: soft, normal bowel sounds. Absent: distended, tenderness, guarding, rebound, rigid, organomegaly, mass, bruit, pulsatile mass, hernia - Extremities Exam Extremities exam: Present: normal inspection, full ROM, normal capillary refill. Absent: tenderness, pedal edema, joint swelling, calf tenderness - Back Exam Back exam: Present: normal inspection, full ROM. Absent: CVA tenderness (R), CVA tenderness (L) - Neurological Exam Neurological exam: Present: alert, oriented X3, CN II-XII intact, normal gait. Absent: motor sensory deficit - Skin Skin exam: Present: warm, intact, normal color ED Course Vital Signs 02/23/19 02/23/19 02/23/19 13:00 13:06 14:30 Temperature 97.9 F Pulse Rate 100 H 88 Respiratory 18 24 27 H Rate Blood Pressure 111/60 101/63 O2 Sat by Pulse 91 93 96 Oximetry 02/23/19 02/23/19 15:15 17:31 Temperature Pulse Rate 107 H Respiratory 30 H 16 Rate Blood Pressure 99/62 O2 Sat by Pulse 91 Oximetry ED Medical Decision Making - Lab Data Result diagrams: 02/23/19 15:12 02/23/19 15:03 - EKG Data -: EKG Interpreted by [place] EKG shows normal: sinus rhythm Rate: normal - EKG Data Interpretation: no acute changes - Radiology Data Radiology results: report reviewed - Medical Decision Making Patient is 48 years old male with no significant past medical history except for traumatic pneumothorax few years ago and heavy smoking. Patient patient presented to the ER complaining of shortness of breath, difficulty breathing and wheezing. Patient was seen here 3 days ago and treated for upper respiratory symptoms but is stated that his symptoms did not improve. Patient denied any chest pain, fever or chills. Patient also denied any nausea or vomiting. Patient found to have a oxygen saturation of 87% on room air in triage. Patient received albuterol 10 mg and Atrovent 1 mg with improvement. Chest x- ray showed no acute abnormality. Labs showed a white blood cells of 15,000. Patient required another dose of albuterol and Atrovent. Patient oxygen saturation will drop to 90s without oxygen. I discussed the patient with Dr. Shanks, she agreed to admit the patient to medical service for further management. Critical care attestation.: If time is entered above; I have spent that time in minutes in the direct care of this critically ill patient, excluding procedure time. ED Disposition Clinical Impression: Acute respiratory distress, Asthmatic bronchitis, Leukocytosis Disposition: -09 OP ADMIT IP TO THIS HOSP Is pt being admited?: Yes Condition: Stable Instructions: Chronic Bronchitis (ED)
[2019-02-23 15:24] LABS: Basophils # (Auto) 0.1 K/mm3 (0.0-0.1); Basophils % (Auto) 0.6 % (0.0-1.8); Eosinophils % (Auto) 0.2 % (0.0-4.3); Hematocrit 44.3 % (35.5-45.6); Hemoglobin 15.3 gm/dl (11.8-15.2); Lymphocytes # (Auto) 1.6 K/mm3 (1.2-5.4); Lymphocytes % (Auto) 10.9 % (13.4-35.0); Mean Corpuscular HGB Conc 35 % (32-34); Mean Corpuscular Volume 100 fl (84-94); Monocytes # (Auto) 1.9 K/mm3 (0.0-0.8); Monocytes % (Auto) 12.4 % (0.0-7.3); Platelet Count 284 K/mm3 (140-440); Red Blood Count 4.43 M/mm3 (3.65-5.03); Red Cell Distribution Width 13.5 % (13.2-15.2)
[2019-02-23 15:39] LABS: INR 0.99 (0.87-1.13)
[2019-02-23 15:40] LABS: Partial Thromboplastin Time 32.8 Sec. (24.2-36.6)
[2019-02-23 15:50] LABS: Alanine Aminotransferase 16 units/L (7-56); Albumin 4.3 g/dL (3.9-5); BUN/Creatinine Ratio 20; Blood Urea Nitrogen 16 mg/dL (9-20); Calcium 9.2 mg/dL (8.4-10.2); Hemolysis Index 10
[2019-02-23] MEDS ORDERED: ONDANSETRON 4 MG/2 ML INJ IV PRN (18:58)
[2019-02-23] MEDS ORDERED: ACETAMINOPHEN 325 MG TAB PO PRN (18:58)
[2019-02-23] MEDS ORDERED: NICOTINE 21 MG/24 HR PATCH TD SCH (19:00)
--- NOTE | 2019-02-23 20:10 | Consultation ---
History of Present Illness Consult date: 02/23/19 Reason for consult: dyspnea, cough History of present illness: PULMONARY AND CRITICAL CARE CONSULTATION. DR. DAVIS THANK YOU FOR ASKING US TO PARTICIPATE IN THE CARE OF THIS PATIENT. Patient is 48 years old male with no significant past medical history except for traumatic pneumothorax few years ago and heavy smoking. Patient patient presented to the ER complaining of shortness of breath, difficulty breathing and wheezing. Patient was seen here 3 days ago and treated for upper respiratory symptoms but is stated that his symptoms did not improve. Patient denied any chest pain, fever or chills. Patient also denied any nausea or vomiting. Patient found to have a oxygen saturation of 87% on room air in triage. Patient is poor historian. Patient has history of smoking. Says smoked only 4 years.Denies alcohol or drug abuse. 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 No children. Allergic to cyclobenzaprine.,Ibuprofen, Iodine. Patient presently resting on 4 litres. O2 saturation 95%. Chest xray reported no acute abnormalities. Healed left lift rib fractures. Medications and Allergies Allergies Allergy/AdvReac Type Severity Reaction Status Date / Time cyclobenzaprine HCl Allergy Shortness Verified 03/04/16 15:24 [From Flexeril] of Breath ibuprofen [From Motrin] Allergy Shortness Verified 03/04/16 15:24 of Breath iodine AdvReac Shortness Verified 11/22/16 21:00 of Breath Home Medications Medication Instructions Recorded Confirmed Last Taken Type Albuterol Sulfate [Ventolin HFA] 2 puff IH Q4H PRN #1 hfa.aer.ad 05/18/13 02/23/19 Unknown Rx Diazepam [Valium] 10 mg PO BID PRN 05/18/13 02/23/19 Unknown History Acetaminophen [Tylenol Arthritis] 650 mg PO Q6HR PRN #30 tablet.er 02/02/17 02/23/19 Unknown Rx traMADoL [Ultram 50 MG tab] 50 mg PO Q6HR PRN #10 tablet 01/04/19 02/23/19 Unknown Rx Active Meds: Active Medications Acetaminophen (Tylenol) 650 mg PO Q4H PRN PRN Reason: Pain MILD(1-3)/Fever >100.5/BERRIOS Albuterol/Ipratropium (Duoneb *Not For Prn Use*) 1 ampul IH Q6HRT ALF Budesonide (Pulmicort) 0.5 mg IH Q12HRT [facility] Enoxaparin Sodium (Enoxaparin) 40 mg SUB-Q QDAY@2200 ALF Methylprednisolone Sodium Succinate (Solu-Medrol) 40 mg IV Q8HR ALF Nicotine (Habitrol) 21 mg TD QDAY ALF Ondansetron HCl (Zofran) 4 mg IV Q8H PRN PRN Reason: Nausea And Vomiting Sodium Chloride (Sodium Chloride Flush Syringe 10 Ml) 10 ml IV BID ALF Sodium Chloride (Sodium Chloride Flush Syringe 10 Ml) 10 ml IV PRN PRN PRN Reason: LINE FLUSH Review of Systems All systems: negative Physical Examination Vital signs: Vital Signs Temp Pulse Resp BP Pulse Ox 97.9 F 100 H 18 111/60 91 02/23/19 13:00 02/23/19 13:00 02/23/19 13:00 02/23/19 13:00 02/23/19 13:00 General appearance: no acute distress, alert Eyes: non-icteric ENT: oropharynx dry Neck: supple, no JVD Ascultation: Bilateral: other (Prolonged expiratory phase.) Cardiovascular: regular rate and rhythm Gastrointestinal: normoactive bowel sounds, soft, non-tender Integumentary: normal Extremities: no cyanosis, no edema Musculoskeletal: no deformities Gait: other (Can not assess now.) non-focal exam, pupils equal and round depressed Results - Laboratory Findings CBC and BMP: 02/23/19 15:12 02/23/19 15:03 PT/INR, D-dimer PT 13.2 Sec. (12.2-14.9) 02/23/19 15:03 INR 0.99 (0.87-1.13) 02/23/19 15:03 Abnormal lab findings: Abnormal Labs 02/23/19 02/23/19 15:03 15:12 WBC 15.1 H Hgb 15.3 H MCV 100 H MCH 35 H MCHC 35 H Lymph % (Auto) 10.9 L [place] % (Auto) 12.4 H [place]cd[place] # 1.9 H Seg Neutrophils % 75.9 H Seg Neutrophils # 11.4 H Carbon Dioxide 21 L - Diagnostic Findings Chest x-ray: report reviewed (REPORTED NO ACUTE ABNORMALITY.), image reviewed [facility] 48 [facility] with no significant past medical history except for traumatic pneumothorax few years ago and heavy smoking. Patient patient presented to the ER complaining of shortness of breath, difficulty breathing and wheezing. Patient was seen here 3 days ago and treated for upper respiratory symptoms but is stated that his symptoms did not improve. Patient denied any chest pain, fever or chills. Patient also denied any nausea or vomiting. Patient found to have a oxygen saturation of 87% on room air in triage. Patient is poor historian. Patient has history of smoking. says smoked only 4 years. Denies alcohol or drug abuse. 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 No children. Allergic to cyclobenzaprine.,Ibuprofen, Iodine. Patient presently resting on 4 litres. O2 saturation 95%. Chest xray reported no acute abnormalities. Healed left lift rib fractures. - Patient Problems (1) Acute respiratory distress Current Visit: Yes Status: Acute Plan to address problem: O2 2 litres via nasal canula. Albuterol/atrovent aerosol treatments q 6 hours. Continue I/V solumedrol. Continue S/C Lovenox. (2) Acute exacerbation of severe persistent extrinsic asthma Current Visit: Yes Status: Acute Plan to address problem: O2 2 litres via nasal canula. Albuterol/atrovent aerosol treatments q 6 hours. Continue I/V solumedrol. Continue S/C Lovenox. Recommend to add zithromax. PFTs as out patient.
[2019-02-23] MEDS ORDERED: oxyCODONE /ACETAMINOPHEN 5-325MG TAB PO PRN (20:44)
[2019-02-23] MEDS ORDERED: ENOXAPARIN 100 MG/1 ML INJ SUB-Q ONE (20:44)
[2019-02-23] MEDS ORDERED: LORazepam 2 MG TAB PO PRN (20:57)
[2019-02-23] MEDS ORDERED: LORazepam 2 MG/ML VIAL IV PRN ×2 (20:57)
--- NOTE | 2019-02-23 20:57 | History and Physical Report ---
History of Present Illness Date of admission: 02/23/19 18:40 Chief complaint: Shortness of breath History of present illness: 48-year-old manSpittle with shortness of breath and chest tightness.He was just in the hospital 3 days ago where he was Treated for URTI symptoms, he was reassured and sent home. He presents back to the hospital complaining of worsening shortness of breath. In his own words he states that he feels like he has bronchitis and is getting worse. The patient is complaining of shortness of breath, pleurisy with severe pleuritic pain in his mid chest, he is finding it hard to take deep breaths. He denies cough at this time. Past medical history Alcohol abuse, left lower extremity deformity requiring surgery, anxiety and depression, bronchitis, was intubated and trached in the past when he had surgery Surgical history; trach, michell in leg, hernia repair. Splenectomy. hernia repair, Left knee surgery Social history; current every day smoker, alcohol abuse, denies illicit drug use Family history; noncontributory Medications and Allergies Allergies Allergy/AdvReac Type Severity Reaction Status Date / Time cyclobenzaprine HCl Allergy Shortness Verified 03/04/16 15:24 [From Flexeril] of Breath ibuprofen [From Motrin] Allergy Shortness Verified 03/04/16 15:24 of Breath iodine AdvReac Shortness Verified 11/22/16 21:00 of Breath Home Medications Medication Instructions Recorded Confirmed Last Taken Type Albuterol Sulfate [Ventolin HFA] 2 puff IH Q4H PRN #1 hfa.aer.ad 05/18/13 02/23/19 Unknown Rx Diazepam [Valium] 10 mg PO BID PRN 05/18/13 02/23/19 Unknown History Acetaminophen [Tylenol Arthritis] 650 mg PO Q6HR PRN #30 tablet.er 02/02/17 02/23/19 Unknown Rx traMADoL [Ultram 50 MG tab] 50 mg PO Q6HR PRN #10 tablet 01/04/19 02/23/19 Unknown Rx Active Meds: Active Medications Acetaminophen (Tylenol) 650 mg PO Q4H PRN PRN Reason: Pain MILD(1-3)/Fever >100.5/BERRIOS Albuterol/Ipratropium (Duoneb *Not For Prn Use*) 1 ampul IH Q6HRT ALF Budesonide (Pulmicort) 0.5 mg IH Q12HRT ALF Enoxaparin Sodium (Enoxaparin) 40 mg SUB-Q QDAY@2200 ALF Methylprednisolone Sodium Succinate (Solu-Medrol) 40 mg IV Q8HR [facility] Nicotine (Habitrol) 21 mg TD QDAY ALF Ondansetron HCl (Zofran) 4 mg IV Q8H PRN PRN Reason: Nausea And Vomiting Oxycodone/Acetaminophen (Percocet 5/325) 1 tab PO Q6H PRN PRN Reason: Pain, Moderate (4-6) Sodium Chloride (Sodium Chloride Flush Syringe 10 Ml) 10 ml IV BID ALF Sodium Chloride (Sodium Chloride Flush Syringe 10 Ml) 10 ml IV PRN PRN PRN Reason: LINE FLUSH Review of Systems All systems: negative (See HPI) Exam - Constitutional Vitals: Temp Pulse Resp BP Pulse Ox 98.2 F 89 22 97/50 91 02/23/19 20:20 02/23/19 20:20 02/23/19 20:20 02/23/19 20:20 02/23/19 20:20 General appearance: Present: severe distress - EENT Eyes: Present: PERRL ENT: hearing intact, clear oral mucosa - Neck Neck: Present: supple, normal ROM - Respiratory Respiratory effort: normal Respiratory: bilateral: diminished - Cardiovascular Heart Sounds: Present: S1 & S2. Absent: rub, click - Extremities Extremities: pulses symmetrical, No edema Peripheral Pulses: within normal limits - Abdominal General gastrointestinal: Present: soft, non-tender, non-distended, normal bowel sounds Male genitourinary: Present: normal - Integumentary Integumentary: Present: clear, warm, dry - Musculoskeletal Musculoskeletal: gait normal, strength equal bilaterally - Psychiatric Psychiatric: appropriate mood/affect, intact judgment & insight - Neurologic Neurologic: CNII-XII intact, moves all extremities Results - Labs CBC & Chem 7: 02/23/19 15:12 02/23/19 15:03 Labs: Laboratory Last Values WBC 15.1 K/mm3 (4.5-11.0) H 02/23/19 15:12 RBC 4.43 M/mm3 (3.65-5.03) 02/23/19 15:12 Hgb 15.3 gm/dl (11.8-15.2) H 02/23/19 15:12 Hct 44.3 % (35.5-45.6) 02/23/19 15:12 MCV 100 fl (84-94) H 02/23/19 15:12 MCH 35 pg (28-32) H 02/23/19 15:12 MCHC 35 % (32-34) H 02/23/19 15:12 RDW 13.5 % (13.2-15.2) 02/23/19 15:12 Plt Count 284 K/mm3 (140-440) 02/23/19 15:12 Lymph % (Auto) 10.9 % (13.4-35.0) L 02/23/19 15:12 [place] % (Auto) 12.4 % (0.0-7.3) H 02/23/19 15:12 Eos % (Auto) 0.2 % (0.0-4.3) 02/23/19 15:12 Baso % (Auto) 0.6 % (0.0-1.8) 02/23/19 15:12 Lymph # 1.6 K/mm3 (1.2-5.4) 02/23/19 15:12 [place] # 1.9 K/mm3 (0.0-0.8) H 02/23/19 15:12 Eos # 0.0 K/mm3 (0.0-0.4) 02/23/19 15:12 Baso # 0.1 K/mm3 (0.0-0.1) 02/23/19 15:12 Seg Neutrophils % 75.9 % (40.0-70.0) H 02/23/19 15:12 Seg Neutrophils # 11.4 K/mm3 (1.8-7.7) H 02/23/19 15:12 PT 13.2 Sec. (12.2-14.9) 02/23/19 15:03 INR 0.99 (0.87-1.13) 02/23/19 15:03 APTT 32.8 Sec. (24.2-36.6) 02/23/19 15:03 Sodium 139 mmol/L (137-145) 02/23/19 15:03 Potassium 3.9 mmol/L (3.6-5.0) 02/23/19 15:03 Chloride 103.8 mmol/L (98-107) 02/23/19 15:03 Carbon Dioxide 21 mmol/L (22-30) L 02/23/19 15:03 Anion Gap 18 mmol/L 02/23/19 15:03 BUN 16 mg/dL (9-20) 02/23/19 15:03 Creatinine 0.8 mg/dL (0.8-1.5) 02/23/19 15:03 Estimated GFR > 60 ml/min 02/23/19 15:03 BUN/Creatinine Ratio 20 % 02/23/19 15:03 Glucose 83 mg/dL (75-100) 02/23/19 15:03 Calcium 9.2 mg/dL (8.4-10.2) 02/23/19 15:03 Total Bilirubin 0.20 mg/dL (0.1-1.2) 02/23/19 15:03 AST 19 units/L (5-40) 02/23/19 15:03 ALT 16 units/L (7-56) 02/23/19 15:03 Alkaline Phosphatase 72 units/L (35-129) 02/23/19 15:03 Troponin T < 0.010 ng/mL (0.00-0.029) 02/23/19 15:12 Total Protein 7.0 g/dL (6.3-8.2) 02/23/19 15:03 Albumin 4.3 g/dL (3.9-5) 02/23/19 15:03 Albumin/Globulin Ratio 1.6 % 02/23/19 15:03 - Imaging and Cardiology Chest x-ray: image reviewed (No acute findings) Assessment and Plan Assessment and plan: 48-year-old man who presents to the hospital with shortness of breath and pleurisy, he was hypoxic upon arrival to but has improved with breathing treatments. Copd exacerbation; steroids, nebs, pulmonology consults, aggressive chest PT Pleuritic chest pain, tachycardia shortness of breath Given extreme pleurisy shortness of breath and tachycardia will obtain CT angiogram to rule out PE, he reports iodine allergy so will do pretreatment protocol and do CTA in am, empiric lovenox for now Acute hypoxic respiratory failure Is responding to treatment, after nebulizer his oxygenation has normalized that he is on room air. Tobacco abuse/dependence Smoking cessation counseling performed for 10 minutes, nicotine patches when necessary Etoh dependence and withdrawal - ciwa protocol, thiamine and folate -preventative health counseling performed for 17 minutes DVT prophylaxis; Lovenox
[2019-02-23] MEDS: IPRATROPIUM/ALBUTEROL SULFATE 3 ML AMPUL.NEB IH SCH (20:58)
[2019-02-23] MEDS: BUDESONIDE 0.5 MG/2 ML NEBU IH SCH (20:58)
[2019-02-23] MEDS: methylPREDNISolone Sod Succinate 40 MG/1 ML INJ IV SCH (21:16)
[2019-02-23] MEDS: predniSONE 50 MG TAB PO SCH (23:03)
[2019-02-24] MEDS: IPRATROPIUM/ALBUTEROL SULFATE 3 ML AMPUL.NEB IH SCH ×3 (02:19→13:43)
--- NOTE | 2019-02-24 02:44 | Event Note ---
Date: 02/23/19 Patient admitted for shortness of breath; states allergy to iodine. Patient reports receiving iodine previously in the past with reaction of difficulty breathing during procedure. VQ scan ordered.
[2019-02-24] MEDS: methylPREDNISolone Sod Succinate 40 MG/1 ML INJ IV SCH (07:46)
[2019-02-24] MEDS: predniSONE 50 MG TAB PO SCH (07:46)
[2019-02-24] MEDS ORDERED: ENOXAPARIN 80 MG/0.8 ML INJ SUB-Q SCH (09:00)
--- NOTE | 2019-02-24 09:20 | Nuclear Medicine Report ---
NUCLEAR MEDICINE VENTILATION/PERFUSION LUNG SCAN INDICATION / CLINICAL INFORMATION: EVAL FOR PE. Shortness of breath TECHNIQUE: 20.1 mCi of Xe-133 were given by inhalation. 4.5 mCi of Tc-99m MAA were given by IV. COMPARISON: Chest radiograph dated 02/23/2019. FINDINGS: VENTILATION: No significant ventilation defects. PERFUSION: No significant perfusion defects. ADDITIONAL FINDINGS: None. IMPRESSION: Low probability for pulmonary embolism. Signer Name: Sergio Roth Jr, MD Signed: 02/24/2019 9:16 AM Workstation Name: [id number]
[2019-02-24] MEDS ORDERED: diphenhydrAMINE 50 MG/ML VIAL IV ONE (09:30)
[2019-02-24] MEDS ORDERED: FOLIC ACID 1 MG TAB PO SCH (10:00)
[2019-02-24] MEDS ORDERED: THIAMINE 100 MG TAB PO SCH (10:00)
--- NOTE | 2019-02-24 10:53 | Discharge Summary ---
Providers - Providers Date of Admission: 02/23/19 18:40 Attending physician: VIVIANA DAVIS MD 02/23/19 18:58 Consult to Physician [CONS] Routine Comment: Consulting Provider: DOROTHY SPENCE Physician Instructions: Reason For Exam: copd [facility] Condition: Stable Hospital course: 48-year-old man who presents to the hospital with shortness of breath and pleurisy, he was hypoxic upon arrival to but has improved with breathing treatments. Copd exacerbation; steroids, nebs, pulmonology consults, aggressive chest PT Pleuritic chest pain, tachycardia shortness of breath Given extreme pleurisy shortness of breath and tachycardia will obtain CT angiogram to rule out PE, he reports iodine allergy so will do pretreatment protocol and do CTA in am, empiric lovenox for now Acute hypoxic respiratory failure Is responding to treatment, after nebulizer his oxygenation has normalized that he is on room air. Tobacco abuse/dependence Smoking cessation counseling performed for 10 minutes, nicotine patches when necessary Etoh dependence and withdrawal - ciwa protocol, thiamine and folate -preventative health counseling performed for 17 minutes DVT prophylaxis; Lovenox Disposition: TO HOME OR SELFCARE Time spent for discharge: 33 mins Core Measure Documentation - Palliative Care Palliative Care/ Comfort Measures: Not Applicable - Core Measures Any of the following diagnoses?: none Exam - Constitutional Vitals: Temp Pulse Resp BP Pulse Ox 97.8 F 86 18 108/70 92 02/24/19 05:15 02/24/19 05:15 02/24/19 05:15 02/24/19 05:15 02/24/19 05:15 General appearance: Present: no acute distress, well-nourished - EENT Eyes: Present: PERRL ENT: hearing intact, clear oral mucosa - Neck Neck: Present: supple, normal ROM - Respiratory Respiratory effort: normal Respiratory: bilateral: diminished - Cardiovascular Heart Sounds: Present: S1 & S2. Absent: rub, click - Extremities Extremities: pulses symmetrical, No edema Peripheral Pulses: within normal limits - Abdominal General gastrointestinal: Present: soft, non-tender, non-distended, normal bowel sounds Male genitourinary: Present: normal - Integumentary Integumentary: Present: clear, warm, dry - Musculoskeletal Musculoskeletal: gait normal, strength equal bilaterally - Psychiatric Psychiatric: appropriate mood/affect, intact judgment & insight - Neurologic Neurologic: CNII-XII intact, moves all extremities Plan Follow up with: KUMAR ERICKSON MD [Primary Care Provider] - 3-5 Days Prescriptions: Ipratropium/Albuterol Sulfate [Combivent Respimat] 1 spray IH QID #1 aer.w.adap Folic Acid [Folvite] 1 mg PO QDAY #30 tablet Nicotine [Habitrol] 21 mg TD QDAY #30 patch oxyCODONE /ACETAMINOPHEN [Percocet 5/325 mg] 1 tab PO Q6H PRN #14 tablet PRN Reason: Pain, Moderate (4-6) Prednisone [predniSONE 10 mg (6-Day Pack, 21 Tabs)] 10 mg PO .TAPER #1 tab.ds.pk Thiamine [Vitamin B-1] 100 mg PO QDAY #30 tablet
[2019-02-24 11:54] VITALS: BP 111/67
[2019-02-24] MEDS: BUDESONIDE 0.5 MG/2 ML NEBU IH SCH (13:45)
[2019-02-24] MEDS ORDERED: ENOXAPARIN 40 MG/0.4 ML INJ SUB-Q SCH (22:00)
== END 2019-02-24 15:00 | disposition home or self-care (01) ==
LOC: ED 12:56 → 3A 18:40
PROVIDERS: ADMIT Internal Medicine; ATTEND Internal Medicine
DX: J96.01 Acute respiratory failure with hypoxia (principal); J44.1 Chronic obstructive pulmonary disease with (acute) exacerbation; R07.81 Pleurodynia; D72.829 Elevated white blood cell count, unspecified; J45.909 Unspecified asthma, uncomplicated; F10.239 Alcohol dependence with withdrawal, unspecified; F17.210 Nicotine dependence, cigarettes, uncomplicated
CPT/HCPCS: 36415; 71045; 78582; 80053; 84484; 85025; 85610; 85730; 87040; 87116; 93005; 93010; 94640; 94644; 94760; 96365; 96372; 96375; 96376; 99284; 99406; A9540; A9558; G0378; J1100; J1650; J1956; J2920; J7512